=== PATIENT | male | born 1980 ===

== ENCOUNTER → 2020-08-07 | Day surgery (SDC) | payer OTHER ==
[~2020-08-07] MED LIST: IBUPROFEN800 M1 PO
[2020-08-07 08:27] LABS: BASOPHIL 0.4 % (0-2); EOSINOPHIL 3.4 % (0-5); HCT 41.3 % (42.0-52.0); HGB 14.6 g/dl (13.2-18.0); LYMPHOCYTE 27.1 % (15-48); MCH 31.7 pg (25.0-31.0); MCHC 35.4 g/dL (32.0-36.0); MCV 89.6 fL (78.0-100.0); MONOCYTE 7.4 % (0-12); MPV 9.6 fL (6.0-9.5); NEUTROPHIL 61.3 % (41-80); NRBC 0; PLT 163 K/uL (150-400); RBC 4.61 M/uL (4.70-6.00); RDW 12.4 % (11.5-14.0); WBC 8.4 K/uL (4.0-10.5)
== END | disposition home or self-care (01) ==
LOC: FAS 05:56
PROVIDERS: Oral & Maxillofacial Surgery
DX: K02.9 Dental caries, unspecified (principal); M27.8 Other specified diseases of jaws; K21.9 Gastro-esophageal reflux disease without esophagitis; S11.21XA Laceration without foreign body of pharynx and cervical esophagus, initial encounter; J95.71 Accidental puncture and laceration of a respiratory system organ or structure during a respiratory system procedure; Y65.3 Endotracheal tube wrongly placed during anesthetic procedure; Y92.530 Ambulatory surgery center as the place of occurrence of the external cause
CPT/HCPCS: 36415; 71045; 85025; 93005; J1100; J1170; J2250; J2405; J2704; J2710; J3010; J7120